=== PATIENT | female | born 1990 | race Caucasian/White ===

== ENCOUNTER 2017-01-30 16:01 | Emergency (ER) | payer MEDICAID ==
[~2017-01-30] VITALS: Ht 167.6 cm; Wt 87.0 kg
[~2017-01-30 16:01] MED LIST: ACET1TAB40 PO; ACET325T33 PO; CEPH-443 PO; CEPH500C PO; ONDA4TAB35 PO
[2017-01-30 16:03] VITALS: Ht 167.6 cm; Wt 87.0 kg
--- NOTE | 2017-01-30 16:41 | ERD ---
ER Documentation Chief Complaint Date/Time DATE: 01/30/17 TIME: 16:38 Chief Complaint vaginal bleeding, 17 wks , s/p fall in shower sunday HPI 6-year-old female who is approximately 17 weeks is complaining of vaginal bleeding 3 days. Patient said that she slipped and fell in the shower 3 days ago, and hit her lower abdomen on the edge of the tub. She is being experiencing pain in her pelvic region and slight vaginal bleeding. Pain is 7 out of 10. Patient also reports decreased movement since the fall. She has slight dysuria as well. Patient is SAB 1, LIBRADO 07/07/2017. Denies fever or chills. Denies flank pain. ROS All systems reviewed and are negative except as per history of present illness. Medications Home Meds Active Scripts Cephalexin* (Keflex*) 500 Mg Capsule, 500 MG PO QID for 7 Days, CAP Prov:OSCAR CONROY. RECORDS TECHNICIAN 01/30/17 Acetaminophen* (Tylophen*) 500 Mg Capsule, 1 CAP PO Q6H Y for PAIN AND OR ELEVATED TEMP, #20 CAP Prov:OSCAR CONROY. RECORDS TECHNICIAN 01/30/17 Acetaminophen* (Tylenol*) 325 Mg Tablet, 2 TAB PO Q8 Y for PAIN AND OR ELEVATED TEMP, #20 TAB Prov:KRISTA LEROY PA-C 07/26/16 Cephalexin* (Keflex*) 500 Mg Capsule, 500 MG PO QID for 7 Days, CAP Prov:KATHARINE HANLEY PA-C 07/20/16 Acetaminophen-Codeine* (Acetaminophen-Cod #3*) 300-30 Mg Tab, 1 TAB PO Q4H Y for PAIN, #40 TAB Prov:OSWALDO EVANS 09/17/15 Cephalexin* (Cephalexin*) 500 Mg Capsule, 500 MG PO Q6, #28 CAP Prov:OSWALDO EVANS 09/17/15 Ondansetron Hcl* (Zofran* ODT) 4 mg -ODT Tab.disper, 4 MG PO Q6 Y for NAUSEA AND /OR VOMITING, #10 TAB Prov:CARIDAD FERRER 09/14/15 Allergies Allergies: Coded Allergies: No Known Allergy (Unverified , 09/14/15) PMhx/Soc Medical and Surgical Hx: pt denies Medical Hx History of Surgery: Yes (Kidney stone removal, cholecystectomy) Anesthesia Reaction: No Hx Neurological Disorder: No Hx Respiratory Disorders: No Hx Cardiac Disorders: No Hx Psychiatric Problems: No Hx Miscellaneous Medical Probl: No Hx Alcohol Use: No Hx Substance Use: No Hx Tobacco Use: No Physical Exam Vitals Vital Signs Date Time Temp Pulse Resp B/P Pulse Ox O2 Delivery O2 Flow Rate FiO2 01/30/17 18:39 97.7 79 17 103/71 Room Air 01/30/17 16:03 98.8 81 20 120/79 99 Physical Exam General: Well-developed, well-nourished, conscious and coherent, in no distress Skin: Warm and dry without rash, good texture and turgor Head: Normocephalic without evidence of trauma Eyes: Sclera and conjunctivae normal; pupils equal, round, and reactive to light; extraocular movements are intact Neck: Supple without meningismus or adenopathy. Carotids are equal. Trachea midline. No bruits or JVD Chest: Normal AP diameter. Good expansion without retractions. Nontender. Lungs are clear to auscultate bilaterally with good tidal volume Heart: Regular rate and rhythm. No murmur, rub, or gallops heard Abdomen: Soft and nontender without masses, guarding, or rebound. Bowel sounds are active. No hepatosplenomegaly Back: Without spinal or CVA tenderness Pelvis: Tender to palpation. Extremities: Full range of motion. Good strength bilaterally. No clubbing, cyanosis, or edema. Peripheral pulses are intact. Sensation intact Neuro: Alert and oriented 4, GCS 15. Cranial nerves grossly intact. Motor and sensory exams nonfocal. Moves all extremities. Speech clear. Gait normal Result Diagram: 01/30/17 1650 Results 24 hrs Laboratory Tests Test 01/30/17 16:50 White Blood Count 12.410^3/ul Red Blood Count 4.4010^6/ul Hemoglobin 11.9g/dl Hematocrit 36.3% Mean Corpuscular Volume 82.5fl Mean Corpuscular Hemoglobin 27.0pg Mean Corpuscular Hemoglobin Concent 32.8g/dl Red Cell Distribution Width 15.5% Platelet Count 14150^3/UL Mean Platelet Volume 10.1fl Neutrophils % 65.0% Lymphocytes % 22.4% Monocytes % 5.5% Eosinophils % 6.4% Basophils % 0.2% Nucleated Red Blood Cells % 0.0/100WBC Neutrophils # 8.110^3/ul Lymphocytes # 2.810^3/ul Monocytes # 0.710^3/ul Eosinophils # 0.810^3/ul Basophils # 0.010^3/ul Nucleated Red Blood Cells # 0.010^3/ul Urine Color LT. YELLOW Urine Clarity CLEAR Urine pH 6.5 Urine Specific [place] <=1.005 Urine Ketones NEGATIVE Urine Nitrite NEGATIVE Urine Bilirubin NEGATIVE Urine Urobilinogen 0.2 E.U./dL Urine Leukocyte Esterase 2+ Urine Microscopic RBC 2-5/HPF Urine Microscopic WBC 2-5/HPF Urine Squamous Epithelial Cells MODERATE Urine Bacteria FEW Urine Hemoglobin 1+ Urine Glucose NEGATIVE% Urine Total Protein NEGATIVE Beta HCG, Quantitative 21219.0mIU/ml PROCEDURE: Obstetrical ultrasound CLINICAL INDICATION: Vaginal Bleed () TECHNIQUE: Multiple sonographic images of the pelvis were obtained. The images were reviewed on a PACS workstation. COMPARISON: Obstetrical ultrasound from 07/25/2016 FINDINGS: The cervix is closed with a length of 3.2 cm. There is a single viable intrauterine gestation. Cardiac activity is present with 143 beats per minute. There is a breech presentation. The placenta is anterior. There is no evidence for an abruption or placenta previa. There is a normal amount of amniotic fluid with a maximum vertical pocket of 4.9 cm. Measurements were made in order to determine age. The results are as follows (cm): BPD = 3.80 HC = 14.36 AC = 11.68 FL = 2.45 Estimated gestational age by ultrasound of approximately 17 weeks, 4 days. The estimated date of delivery by ultrasound is 07/06/2017. Estimated gestational age by LMP of approximately 17 weeks, 3 days. The estimated date of delivery by LMP is 07/07/2017. EFW = 195 grams (45th percentile) The right ovary is not visualized. The left ovary measures 2.0 x 1.4 x 1.6 cm. There is normal vascular flow in the left ovary. There are no abnormal adnexal masses. IMPRESSION: Single viable intrauterine gestation of approximately 17 weeks, 4 days . The estimated date of delivery is 07/06/2017 . Dating by ultrasound is within 1 day of dating by LMP. Breech presentation. Anterior placenta without evidence of an abruption. The left ovary is unremarkable in the right ovary is not visualized. There are no abnormal adnexal masses. RPTAT: EE Trey Hackett Physician Date Time Electronically viewed and signed by Trey Hackett Physician on 01/30/2017 17:15 RA/ CC: OSCAR CONROY. RECORDS TECHNICIAN Procedures/MDM ED course: CBC: WBC 12.4, hemoglobin 11.9, hematocrit 36.3, platelets 392. Beta hC.0 UA: 2+ leukocyte, negative nitrite, 1+ hemoglobin Blood type: O+. RhoGAM is not indicated for patient. OB ultrasound: Single viable intrauterine gestation of approximately 17 weeks, 4 days . The estimated date of delivery is 07/06/2017 . Dating by ultrasound is within 1 day of dating by LMP. Breech presentation. Anterior placenta without evidence of an abruption. The left ovary is unremarkable in the right ovary is not visualized. There are no abnormal adnexal masses. Medical decision-making: Well-appearing 26-year-old female who is approximately 17 weeks is complaining of pelvic pain and slight vaginal bleeding after a fall 3 days ago. Ultrasound showed normal intrauterine . UA is positive for UTI. Likely her spotting is due to UTI rather than vaginal bleeding. Her pelvic pain is likely secondary to contusion. Tylenol given to the patient in the ED. Patient appears well, stable for discharge and outpatient management. Medical decision making shared with patient and family. Education provided to patient and family. Patient and family expressed understanding of the plan. Medications on discharge: Tylenol, Keflex. Follow-up: Primary care provider in 2-3 days or return to ED if worse. Departure Diagnosis: Primary Impression: Vaginal bleeding in patient at less than 20 weeks ges... Additional Impression: UTI (urinary tract infection) Condition: Stable OSCAR CONROY NP Jan 30, 2017 16:41
[2017-01-30 17:12] LABS: ADD SCAN DIFF NO
[2017-01-30 17:14] LABS: BASOPHILS % 0.2 % (0.0-2.0); EOSINOPHILS # 0.8 10^3/ul (0.0-0.5); EOSINOPHILS % 6.4 % (0.0-7.0); HEMATOCRIT 36.3 % (37.0-47.0); HEMOGLOBIN 11.9 g/dl (12.0-16.0); LYMPHOCYTES # 2.8 10^3/ul (0.8-2.9); LYMPHOCYTES % 22.4 % (15.0-51.0); MEAN CORPUSCULAR HGB CONC 32.8 g/dl (32.0-37.0); MEAN CORPUSCULAR VOLUME 82.5 fl (82.0-101.0); MEAN PLATELET VOLUME 10.1 fl (7.4-10.4); MONOCYTE # 0.7 10^3/ul (0.3-0.9); MONOCYTES % 5.5 % (0.0-11.0); NEUTROPHIL # 8.1 10^3/ul (1.6-7.5); PLATELET COUNT 392 10^3/UL (140-415); RED CELL DISTRIBUTION WIDTH 15.5 % (11.5-14.5); WHITE BLOOD COUNT 12.4 10^3/ul (4.8-10.8)
--- NOTE | 2017-01-30 17:15 | RADRPT ---
PROCEDURE: Obstetrical ultrasound CLINICAL INDICATION: Vaginal Bleed () TECHNIQUE: Multiple sonographic images of the pelvis were obtained. The images were reviewed on a PACS workstation. COMPARISON: Obstetrical ultrasound from 07/25/2016 FINDINGS: The cervix is closed with a length of 3.2 cm. There is a single viable intrauterine gestation. Cardiac activity is present with 143 beats per minute. There is a breech presentation. The placenta is anterior. There is no evidence for an abruption or placenta previa. There is a normal amount of amniotic fluid with a maximum vertical pocket of 4.9 cm. Measurements were made in order to determine age. The results are as follows (cm): BPD =3.80 HC =14.36 AC =11.68 FL =2.45 Estimated gestational age by ultrasound of approximately 17 weeks, 4 days. The estimated date of delivery by ultrasound is 07/06/2017. Estimated gestational age by LMP of approximately 17 weeks, 3 days. The estimated date of delivery by LMP is 07/07/2017. EFW = 195 grams (45th percentile) The right ovary is not visualized. The left ovary measures 2.0 x 1.4 x 1.6 cm. There is normal vasc ular flow in the left ovary. There are no abnormal adnexal masses. IMPRESSION: Single viable intrauterine gestation of approximately 17 weeks, 4 days . The estimated date of delivery is 07/06/2017 . Dating by ultrasound is within 1 day of dating by LMP. Breech presentation. Anterior placenta without evidence of an abruption. The left ovary is unremarkable in the right ovary is not visualized. There are no abnormal adnexal masses. RPTAT: EE Physician Willi Date Time Electronically viewed and signed by Trey Hackett Physician on 01/30/2017 17:15 RA/
[2017-01-30 17:34] LABS: ADD UMIC YES; URINE BILIRUBIN (Dip) NEGATIVE (NEGATIVE); URINE BLOOD (Dip) 1+ (NEGATIVE); URINE COLOR LT. YELLOW (YELLOW); URINE GLUCOSE (Dip) NEGATIVE (NEGATIVE); URINE KETONES (Dip) NEGATIVE (NEGATIVE); URINE LEUKOCYTE ESTERASE (Dip) 2+ (NEGATIVE); URINE NITRITE (Dip) NEGATIVE (NEGATIVE); URINE TOTAL PROTEIN (Dip) NEGATIVE (NEGATIVE); URINE UROBILINOGEN (Dip) 0.2 E.U./dL (0.1-1.0)
[2017-01-30 17:48] LABS: BACTERIA,URINE FEW; SQUAMOUS EPITHELIAL CELL,UR MODERATE
[2017-01-30] MEDS ORDERED: ACET500C5 PO (18:27)
[2017-01-30] MEDS ORDERED: CEPH-443 PO (18:27)
[2017-01-30 18:39] VITALS: BP 103/71; PULSE 79; RESP 17; TEMP 97.7
== END 2017-01-30 18:39 | disposition home or self-care (01) ==
LOC: FTE 16:01
DX: O20.9 Hemorrhage in early pregnancy, unspecified (principal); O23.42 Unspecified infection of urinary tract in pregnancy, second trimester; R40.2412 Glasgow coma scale score 13-15, at arrival to emergency department; R10.2 Pelvic and perineal pain; Z3A.17 17 weeks gestation of pregnancy
CPT/HCPCS: 36415; 76805; 81001; 84702; 85025; 86900; 86901; Z7502

== ENCOUNTER 2017-03-04 18:28 | Outpatient (CLI) | payer MEDICAID ==
[~2017-03-04] VITALS: Ht 162.6 cm; Wt 88.6 kg
[~2017-03-04 18:28] MED LIST changes: +ACET500C5 PO
[2017-03-04] MEDS ORDERED: PRENAT PO (19:17)
[2017-03-04 19:18] VITALS: BP 112/64; PULSE 97; RESP 18
[2017-03-04 19:41] LABS: URINE BLOOD (Dip) POC 1+ (NEGATIVE)
[2017-03-04] MEDS ORDERED: LACTATED RINGER'S 1,000 ML IV STA (19:53)
--- NOTE | 2017-03-04 20:51 | RADRPT ---
PROCEDURE: US OB AND ULTRASOUND CERVIX. CLINICAL INDICATION: Size and dates , contractions TECHNIQUE: Multiple sonographic images of the pelvis and gravid uterus were obtained. The images were reviewed on a PACS workstation. Transvaginal images of the cervix were also obtained. COMPARISON: 01/30/2017 FINDINGS: The cervix has a length of 5.1 cm. There is a single viable intrauterine gestation. Cardiac activity is present with 148 beats per min [place]. There is a breech presentation. The placenta is anterior. There is no evidence for an abruption or placenta previa. There is a normal amount of amniotic fluid with a MVP= 4.1 cm. Measurements were made in order to determine age. The results are as follows: BPD =5.2 cm HC =18.7 cm AC =18.3 cm FL =3.9 cm Estimated gestational age of approximately 22 weeks and 1 day based on ultrasound measurements. Clinical age: 22 weeks and 2 days. The estimated date of delivery is 07/07/2017, based on ultrasound measurements. The EFW = 525 g, 64%, based on LMP age. RPTAT: AA IMPRESSION: Single viable intrauterine gestation of approximately 22 weeks and 1 day based on ultrasound measur ements. .Stan Betancourt MD, Date Time Electronically viewed and signed by .Stan Betancourt MD, on 03/04/2017 20:51 .S/
[2017-03-04] MEDS ORDERED: LACTATED RINGER'S 1,000 ML IV SCH (21:00)
[2017-03-04 21:20] LABS: ADD UMIC YES; UR ASCORBIC ACID NEGATIVE (NEGATIVE); UR BILIRUBIN (Dip) NEGATIVE (NEGATIVE); UR BLOOD (Dip) 1+ mg/dL (NEGATIVE); UR CLARITY CLEAR (CLEAR); UR COLOR STRAW (YELLOW); UR GLUCOSE (Dip) NEGATIVE (NEGATIVE); UR KETONES (Dip) NEGATIVE (NEGATIVE); UR LEUKOCYTE ESTERASE (Dip) NEGATIVE Leu/ul (NEGATIVE); UR NITRITE (Dip) NEGATIVE (NEGATIVE); UR RBC 1 /HPF (0-5); UR SPECIFIC GRAVITY (Dip) 1.005 (1.003-1.030); UR TOTAL PROTEIN (Dip) NEGATIVE (NEGATIVE); UR UROBILINOGEN (Dip) NEGATIVE (NEGATIVE)
--- NOTE | 2017-03-04 21:52 | QN ---
Documentation Comment 25 y/o at 22+ weeks with c/o dizziness and abdominal discomfort. Afebrile VSS Abdomen soft NT Strip Appropriate for GA U/A negative Cervical length normal After IV hydration and rest, patient feels better. D/c home. MEGHNA TALBERT MD Mar 04, 2017 21:52
--- NOTE | 2017-03-04 22:31 | TRIAGE ---
OB Triage Datetime Report Generated by CPN: 03/04/2017 22:31 Datetime: 03/04/2017 21:56 Stage of : OB Triage Datetime: 03/04/2017 21:48 Monitor Mode: External Resting Tone [place]: Relaxed Contraction Comments: NO UC'S NOTED, PT DENIES UC'S AT THIS TIME Datetime: 03/04/2017 21:47 Stage of : OB Triage Datetime: 03/04/2017 21:31 Stage of : OB Triage Datetime: 03/04/2017 21:30 Pain Assessment Pain Scale: 0 Pain Presence: None/Denies Pain Type: N/A Datetime: 03/04/2017 21:03 Stage of : OB Triage Datetime: 03/04/2017 20:14 Stage of : OB Triage Datetime: 03/04/2017 20:12 Stage of : OB Triage Datetime: 03/04/2017 20:08 Stage of : OB Triage Temperature Route: Oral Pain Assessment Pain Scale: 8 Pain Presence: Intermittent Pain Type: Contraction (Annotations: PER PT REPORT) Pain Location: Abdomen Pain Goal: 2 Pain Relief Measures: Comfort Measures Datetime: 03/04/2017 20:06 Stage of : OB Triage Datetime: 03/04/2017 20:00 Labor Evaluation Frequency: x2 Monitor Mode: External Duration (sec)2399: 40 Quality: Mild Resting Tone [place]: Relaxed Datetime: 03/04/2017 19:50 Stage of : OB Triage Datetime: 03/04/2017 19:44 Stage of : OB Triage Datetime: 03/04/2017 19:34 Monitor Mode: External Datetime: 03/04/2017 19:24 Labor Evaluation Frequency: NONE Monitor Mode: External Pattern: Normal: <= 5 Contractions in 10 Minutes Resting Tone [place]: Relaxed Datetime: 03/04/2017 19:19 Time of Arrival: 03/04/2017 18:24 EGA: 22.2 Arrived By: Wheelchair Arrived From: Emergency Dept Chief Complaint: DIZZINESS STARTING 78 MORNING, AND CONTRACTIONS/ABDOMINAL PAIN STARTING FROM 8 IN THE MORNING. Contractions: Occasional Rupture of Membranes: Denies Vaginal Bleeding: None Vaginal Discharge: Denies Recent Sexual Intercouse: Denies Abdominal Trauma: Not Applicable Patient Complaints: Contractions; Dizziness Initial Plan: U/S FOR FHTs, CONTINUOUS TOCO, IV bolus 1l, then 125ml/hr prn ucs, UA, CL Datetime: 03/04/2017 19:09 Stage of : OB Triage Datetime: 03/04/2017 18:48 Stage of : OB Triage Assessment Type: Triage Maternal Assessment Level of Consciousness: Fully Conscious Headache: Denies Blurred Vision: No Respiratory Effort: Unlabored; Regular Rhythm; Equal Expansion Breath Sounds, Left: Clear and Equal Breath Sounds, Right: Clear and Equal Nausea/Vomiting: Denies RUQ Epigastric Pain: Denies Lower Extremities Edema: None Degree: None Upper Extremities Edema: None Degree: None Facial Edema: None Temperature Route: Oral Fall Risk Assessment History of Falling: (0) No Secondary Diagnosis: (0) No Ambulatory Aid: (0) Bedrest/Nurse Assist IV Therapy: (0) No Gait: (0) Normal/Bedrest/Immobile Mental Status: (0) Oriented to Own Ability Fall Score: 0 Fall Risk Score Definition: No Risk: No action required Pain Assessment Pain Scale: 10 Pain Presence: Intermittent Pain Type: Cramping; Contraction Pain Location: Abdomen Datetime: 03/04/2017 18:46 Heart Rate FHR Baseline Rate: 150
== END 2017-03-04 21:56 | disposition home or self-care (01) ==
LOC: OBT 18:28 → L-D 18:29 → OBT 21:56
PROVIDERS: ATTEND Obstetrics & Gynecology
DX: O26.892 Other specified pregnancy related conditions, second trimester (principal); R42 Dizziness and giddiness; Z3A.23 23 weeks gestation of pregnancy
CPT/HCPCS: 36415; 76815; 76817; 81001; 96360; 96361; J7120; Z7500; 81003; G0463

== ENCOUNTER 2017-05-15 18:55 | Outpatient (CLI) | payer MEDICAID ==
[~2017-05-15] VITALS: Ht 160 cm; Wt 136.4 kg
[~2017-05-15 18:55] MED LIST changes: -ACET1TAB40 PO; -ACET325T33 PO; -ACET500C5 PO; -CEPH-443 PO; -CEPH500C PO; -ONDA4TAB35 PO; +PRENAT PO
[2017-05-15 18:59] VITALS: Ht 160 cm; Wt 136.4 kg
[2017-05-15 19:00] VITALS: BP 120/74; PULSE 86; RESP 19
[2017-05-15] MEDS ORDERED: LACTATED RINGER'S 1,000 ML IV ONE (20:00)
[2017-05-15] MEDS: TERBUTALINE 1 MG/ML INJ SC PRN ×2 (20:17→21:25)
--- NOTE | 2017-05-15 20:36 | PN ---
Triage Information Date/Time Reason for visit: labor Weeks of Gestation 32 /Para 2/1 Diabetes: none Hypertention: none Objective Vital Signs Date Time Temp Pulse Resp B/P Pulse Ox O2 Delivery O2 Flow Rate FiO2 05/15/17 19:00 86 19 120/74 99 Room Air Heart Rate: 140's Contractions: 6-10 Minutes Apart Exam cervix is closed and thick Results/Medications Medications Current Medications Terbutaline Sulfate 0.25 mg 0.25 mg PRN PRN SC contractions Last administered on 05/15/17 20:17; Admin Dose 0.25 MG; Start 05/15/17 at 20:00 Lactated Ringer's (Lr) 1,000 ml @ 1,000 mls/hr Q1H ONCE IV Last administered on 05/15/17 20:17; Admin Dose 1,000 MLS/HR; Start 05/15/17 at 20:00; Stop 05/15 at 20:59 Disposition: UA AND TERBUTALINE MARYA ROMERO MD May 15, 2017 20:36
[2017-05-15 21:46] LABS: ADD UMIC YES; UR ASCORBIC ACID NEGATIVE (NEGATIVE); UR BILIRUBIN (Dip) NEGATIVE (NEGATIVE); UR BLOOD (Dip) 1+ mg/dL (NEGATIVE); UR CLARITY CLEAR (CLEAR); UR COLOR STRAW (YELLOW); UR GLUCOSE (Dip) NEGATIVE (NEGATIVE); UR KETONES (Dip) NEGATIVE (NEGATIVE); UR LEUKOCYTE ESTERASE (Dip) NEGATIVE Leu/ul (NEGATIVE); UR NITRITE (Dip) NEGATIVE (NEGATIVE); UR RBC 0 /HPF (0-5); UR SPECIFIC GRAVITY (Dip) 1.003 (1.003-1.030); UR SQUAMOUS EPITHELIAL CELL FEW /HPF (FEW); UR TOTAL PROTEIN (Dip) NEGATIVE (NEGATIVE); UR UROBILINOGEN (Dip) NEGATIVE (NEGATIVE)
--- NOTE | 2017-05-15 23:12 | TRIAGE ---
OB Triage Datetime Report Generated by CPN: 05/15/2017 23:12 Datetime: 05/15/2017 22:38 Pain Assessment Pain Scale: 0 Pain Presence: None/Denies Pain Type: N/A Datetime: 05/15/2017 21:53 Pain Assessment Pain Scale: 0 Pain Presence: None/Denies Pain Type: N/A Datetime: 05/15/2017 21:25 Pain Assessment Pain Scale: 8 Pain Presence: Constant Pain Type: Sharp Pain Location: Abdomen; Back Datetime: 05/15/2017 20:30 Vaginal Exam Dilatation (cms): 0.0 Effacement (%): 0 Station: -3 Exam By: Dr. Hernandez Vaginal Bleeding: None Cervix, Consistency: Moderate Cervix, Position: Posterior Datetime: 05/15/2017 19:28 Maternal Assessment Level of Consciousness: Fully Conscious DTR's/Clonus: DTRs 1+ Headache: Denies Blurred Vision: No Respiratory Effort: Unlabored Breath Sounds, Left: Clear and Equal Breath Sounds, Right: Clear and Equal Nausea/Vomiting: Denies RUQ Epigastric Pain: Denies Facial Edema: None Labor Evaluation Frequency: X2 Monitor Mode: External Duration (sec)2399: 60-80 Quality: Mild Pattern: Normal: <= 5 Contractions in 10 Minutes Resting Tone [place]: Relaxed Heart Rate FHR Baseline Rate: 145 Monitor Mode: External US Variability: Moderate 6-25 bpm Accelerations: 15X15 Decelerations: None Category: Category I Pain Assessment Pain Scale: 8 Pain Presence: Intermittent Pain Type: Contraction Pain Location: Back Pain Goal: 3 Pain Relief Measures: Pain Medication Given Membrane Status: Intact Datetime: 05/15/2017 18:58 Assessment Type: Triage Maternal Assessment Level of Consciousness: Fully Conscious DTR's/Clonus: DTRs 2+; No Clonus Headache: Denies Blurred Vision: No Respiratory Effort: Unlabored; Regular Rhythm; Equal Expansion Breath Sounds, Left: Clear and Equal Breath Sounds, Right: Clear and Equal Nausea/Vomiting: Denies RUQ Epigastric Pain: Denies Lower Extremities Edema: None Degree: None Upper Extremities Edema: None Degree: None Facial Edema: None Fall Risk Assessment History of Falling: (0) No Secondary Diagnosis: (0) No Ambulatory Aid: (0) Bedrest/Nurse Assist IV Therapy: (0) No Gait: (0) Normal/Bedrest/Immobile Mental Status: (0) Oriented to Own Ability Fall Score: 0 Fall Risk Score Definition: No Risk: No action required Datetime: 05/15/2017 18:45 Time of Arrival: 05/15/2017 18:45 EGA: 32.4 Arrived By: Ambulatory Arrived From: Home Chief Complaint: PT CAME IN C/O UC'S Q 4 MIN SINCE YESTERDAY, DENIES ANY OTHER COMPLICATION AT S I TIME AND STATES + FM Movement: Present Contractions: Regular Time Contractions Began: 05/14/2017 06:00 Contractions: Q 4 Rupture of Membranes: Denies Vaginal Bleeding: None Vaginal Discharge: Denies Recent Sexual Intercouse: Denies Abdominal Trauma: Not Applicable Additional Patient Complaints: NONE Time Provider Notified: 05/15/2017 19:45 Provider Notified: Dr. Hernandez Initial Plan: MONITOR Datetime: 03/04/2017 19:19 EGA: 22.2 Datetime: 03/04/2017 18:48 Fall Score: 0 Fall Risk Score Definition: No Risk: No action required
== END 2017-05-15 23:00 | disposition home or self-care (01) ==
LOC: OBT 18:55 → L-D 18:57 → OBT 23:00
PROVIDERS: ATTEND Obstetrics & Gynecology
DX: O60.03 Preterm labor without delivery, third trimester (principal); Z3A.32 32 weeks gestation of pregnancy
CPT/HCPCS: 36415; 81001; 96360; 96361; 96372; G0463; J3105; J7120

== ENCOUNTER 2017-06-11 14:33 | Outpatient (CLI) | payer MEDICAID ==
[~2017-06-11] VITALS: Ht 160 cm; Wt 93.8 kg
[2017-06-11] MEDS ORDERED: LACTATED RINGER'S 1,000 ML IV SCH (14:37)
[2017-06-11 14:45] VITALS: BP 129/75; PULSE 104; RESP 24; Ht 160 cm; Wt 93.8 kg
--- NOTE | 2017-06-11 15:03 | RADRPT ---
PROCEDURE: US OB biophysical profile. CLINICAL INDICATION: decreased movements, contractions TECHNIQUE: Multiple sonographic images of the pelvis were obtained. The images were reviewed on a PACS workstation. COMPARISON: none FINDINGS: There is a single viable intrauterine gestation. Cardiac activity is present with 161 beats per min [place]. There is a vertex presentation. The placenta is anterior. There is no evidence of placental abruption. There is a normal amount of amniotic fluid with an SARITA = 10.2 cm. Biophysical profile: movement 2/2 tone 2/2. breathing 2/2 SARITA 2/2 Total 04/03 RPTAT: AA . IMPRESSION: Normal biophysical profile. . .Stan Betancourt MD, MD Date Time Electronically viewed and signed by .Stan Betancourt MD, MD on 06/11/2017 15:03 .S/
--- NOTE | 2017-06-11 15:05 | RADRPT ---
AMENDMENT: 06/11/2017 4:12:30 PM Stan Betancourt M.D Estimated gestational age of approximately 36 weeks and 3 days based on ultrasound measurements. Clinical age: 36 weeks and 3 days. The estimated date of delivery is 07/06/17, based on ultrasound measurements. The EFW = 3119 g, 72%, based on LMP age. PROCEDURE: US OB. CLINICAL INDICATION: Size and dates TECHNIQUE: Multiple sonographic images of the pelvis and gravid uterus were obtained. The images were reviewed on a PACS workstation. COMPARISON: No prior studies are available for comparison. FINDINGS: There is a single viable intrauterine gestation. Cardiac activity is present with 173 beats per min [place]. There is a vertex presentation. The placenta is anterior. There is no evidence of placental abruption. There is a normal amount of amniotic fluid with an SARITA = 10.2 cm. Measurements were made in order to determine age. The results are as follows: BPD =8.8 cm HC =32 cm AC =34.3 cm FL =7.0 cm Estimated gestational age of approximately 36 weeks and 3 days based on ultrasound measurements. Clinical age: 40 weeks and 6 days. The estimated date of delivery is 07/06/17, based on ultrasound measurements. The EFW = 3119 g, 8.9%, based on LMP age. RPTAT: AA IMPRESSION: Single viable intrauterine gestation of approximately 36 weeks and 3 days based on ultrasound measu rements. Smaller than clinical age by 4.5 weeks. .Stan Betancourt MD, Date Time Electronically viewed and signed by .Stan Betancourt MD, on 06/11/2017 16:12 .S/
[2017-06-11 15:45] LABS: ADD UMIC YES; UR ASCORBIC ACID NEGATIVE (NEGATIVE); UR BILIRUBIN (Dip) NEGATIVE (NEGATIVE); UR BLOOD (Dip) 1+ mg/dL (NEGATIVE); UR CLARITY CLEAR (CLEAR); UR COLOR STRAW (YELLOW); UR GLUCOSE (Dip) NEGATIVE (NEGATIVE); UR KETONES (Dip) NEGATIVE (NEGATIVE); UR LEUKOCYTE ESTERASE (Dip) NEGATIVE Leu/ul (NEGATIVE); UR NITRITE (Dip) NEGATIVE (NEGATIVE); UR RBC 0 /HPF (0-5); UR SPECIFIC GRAVITY (Dip) 1.004 (1.003-1.030); UR TOTAL PROTEIN (Dip) NEGATIVE (NEGATIVE); UR UROBILINOGEN (Dip) NEGATIVE (NEGATIVE)
--- NOTE | 2017-06-11 16:27 | TRIAGE ---
OB Triage Datetime Report Generated by CPN: 06/11/2017 16:27 Datetime: 06/11/2017 15:11 Comments: ROM PLUS COLLECTED AT THIS TIMW Vaginal Exam Dilatation (cms): 0.0 Effacement (%): 0 Station: -3 Exam By: OGBODU _ Datetime: 06/11/2017 14:46 Stage of : OB Triage Assessment Type: Triage Maternal Assessment Level of Consciousness: Fully Conscious DTR's/Clonus: DTRs 2+; No Clonus Headache: Denies Blurred Vision: No Respiratory Effort: Unlabored; Regular Rhythm; Equal Expansion Breath Sounds, Left: Clear and Equal Breath Sounds, Right: Clear and Equal Nausea/Vomiting: Denies RUQ Epigastric Pain: Denies Lower Extremities Edema: Bilateral Lower Extremities Degree: 1+ Upper Extremities Edema: None Degree: None Facial Edema: None Temperature Route: Axillary Fall Risk Assessment History of Falling: (0) No Secondary Diagnosis: (0) No Ambulatory Aid: (0) Bedrest/Nurse Assist IV Therapy: (0) No Gait: (0) Normal/Bedrest/Immobile Mental Status: (0) Oriented to Own Ability Fall Score: 0 Fall Risk Score Definition: No Risk: No action required Datetime: 06/11/2017 14:39 Time of Arrival: 06/11/2017 14:31 EGA: 36.3 Arrived By: Ambulatory Arrived From: Home Chief Complaint: R/O SROM SINCE 0800 Movement: Present Contractions: Irregular Time Contractions Began: 06/11/2017 08:00 Rupture of Membranes: Denies Vaginal Bleeding: None Vaginal Discharge: Denies Recent Sexual Intercouse: Denies Time Provider Notified: 06/11/2017 15:30 Provider Notified: DR. ROMERO Initial Plan: SVE, NST CALL MD Datetime: 05/15/2017 22:30 Labor Evaluation Frequency: NONE Monitor Mode: External Resting Tone [place]: Relaxed Heart Rate FHR Baseline Rate: 140 Monitor Mode: External US Variability: Moderate 6-25 bpm Accelerations: 15X15 Decelerations: None Category: Category I Datetime: 05/15/2017 21:30 Labor Evaluation Frequency: x1 Monitor Mode: External Duration (sec)2399: 80 Quality: Mild Pattern: Normal: <= 5 Contractions in 10 Minutes Resting Tone [place]: Relaxed Heart Rate FHR Baseline Rate: 140 Monitor Mode: External US Variability: Moderate 6-25 bpm Accelerations: 15X15 Decelerations: None Category: Category I Datetime: 05/15/2017 20:30 Labor Evaluation Frequency: x4 Monitor Mode: External Duration (sec)2399: 50-80 Quality: Mild Pattern: Normal: <= 5 Contractions in 10 Minutes Resting Tone [place]: Relaxed Heart Rate FHR Baseline Rate: 140 Monitor Mode: External US Variability: Moderate 6-25 bpm Accelerations: 15X15 Decelerations: None Category: Category I Datetime: 05/15/2017 18:58 Fall Score: 0 Fall Risk Score Definition: No Risk: No action required Datetime: 05/15/2017 18:45 EGA: 32.4 Datetime: 03/04/2017 19:19 EGA: 22.2 Datetime: 03/04/2017 18:48 Fall Score: 0 Fall Risk Score Definition: No Risk: No action required
[2017-06-11 16:39] LABS: BASOPHILS % 0.4 % (0.0-2.0); EOSINOPHILS # 0.8 10^3/ul (0.0-0.5); EOSINOPHILS % 7.7 % (0.0-7.0); HEMATOCRIT 35.2 % (37.0-47.0); HEMOGLOBIN 11.2 g/dl (12.0-16.0); LYMPHOCYTES # 1.9 10^3/ul (0.8-2.9); LYMPHOCYTES % 18.6 % (15.0-51.0); MEAN CORPUSCULAR HEMOGLOBIN 27.4 pg (29.0-33.0); MEAN CORPUSCULAR HGB CONC 31.8 g/dl (32.0-37.0); MEAN CORPUSCULAR VOLUME 86.1 fl (82.0-101.0); MEAN PLATELET VOLUME 10.2 fl (7.4-10.4); MONOCYTE # 0.6 10^3/ul (0.3-0.9); MONOCYTES % 5.7 % (0.0-11.0); NEUTROPHIL # 6.9 10^3/ul (1.6-7.5); NEUTROPHILS % 67.2 % (39.0-77.0); PLATELET COUNT 348 10^3/UL (140-415); RED BLOOD COUNT 4.09 10^6/ul (4.20-5.40); RED CELL DISTRIBUTION WIDTH 14.4 % (11.5-14.5); WHITE BLOOD COUNT 10.3 10^3/ul (4.8-10.8)
--- NOTE | 2017-06-11 17:47 | QN ---
Documentation Comment 36 weeks co of LOF vss exam wnl nst reactive a/p iup 36 week rom neg nida wnl dc home false labor NAZ RODRIGUEZ MD Jun 11, 2017 17:47
== END 2017-06-11 16:30 | disposition home or self-care (01) ==
LOC: OBT 14:33 → L-D 14:33 → OBT 16:30
PROVIDERS: ATTEND Obstetrics & Gynecology
DX: O41.93X0 Disorder of amniotic fluid and membranes, unspecified, third trimester, not applicable or unspecified (principal); O47.03 False labor before 37 completed weeks of gestation, third trimester; Z3A.36 36 weeks gestation of pregnancy
CPT/HCPCS: 76815; 76818; 81001; 84112; 85025; J7120; Z7500; G0463

== ENCOUNTER 2017-06-19 21:24 | Outpatient (CLI) | payer MEDICAID ==
[~2017-06-19] VITALS: Ht 160 cm; Wt 94.3 kg
[2017-06-19 21:54] VITALS: Ht 160 cm; Wt 94.3 kg
--- NOTE | 2017-06-20 00:04 | RADRPT ---
PROCEDURE: ULTRASOUND OBSTETRICAL CLINICAL INDICATION: 26-year-old female with ruptured membranes. The studies performed fo r amniotic fluid index evaluation. TECHNIQUE: Multiple sonographic images of the pelvis were obtained. The images were reviewed on a PACS workstation. COMPARISON: Ultrasound OB June 11, 2017. FINDINGS: The cervix is not well visualized. There is a single viable intrauterine gestation. Cardiac activit y is present with 141 beats per minute. There is a vertex presentation. The placenta is anterior. There is no evidence for an abruption or placenta previa. There is a normal amount of amniotic fluid with an SARITA = 10.4 cm. IMPRESSION: 1. Single viable intrauterine gestation with vertex presentation. 2. The amniotic fluid index equals 10.4 cm. .Nj Welch MD, Date Time Electronically viewed and signed by .Nj Welch MD, on 06/20/2017 00:04 .M/
--- NOTE | 2017-06-20 00:19 | TRIAGE ---
OB Triage Datetime Report Generated by CPN: 06/20/2017 00:19 Datetime: 06/20/2017 00:15 Stage of : OB Triage Datetime: 06/20/2017 00:13 Stage of : OB Triage Datetime: 06/19/2017 23:58 Stage of : OB Triage Datetime: 06/19/2017 23:30 Labor Evaluation Frequency: OCC Monitor Mode: External Pattern: Normal: <= 5 Contractions in 10 Minutes Heart Rate FHR Baseline Rate: 135 FHR Baseline Changes: No Baseline Change Variability: Moderate 6-25 bpm Accelerations: 15X15 Datetime: 06/19/2017 22:55 Labor Evaluation Frequency: OCC Monitor Mode: External Pattern: Normal: <= 5 Contractions in 10 Minutes Heart Rate FHR Baseline Rate: 135 FHR Baseline Changes: No Baseline Change Variability: Moderate 6-25 bpm Accelerations: 15X15 Decelerations: None Datetime: 06/19/2017 22:00 Labor Evaluation Frequency: OCC Monitor Mode: External Pattern: Normal: <= 5 Contractions in 10 Minutes Heart Rate FHR Baseline Rate: 125 Monitor Mode: External US FHR Baseline Changes: No Baseline Change Variability: Moderate 6-25 bpm Datetime: 06/19/2017 21:34 Stage of : OB Triage Vaginal Exam Dilatation (cms): 1.0 Effacement (%): 50 Station: -4 Exam By: GSTRATTON RN Datetime: 06/19/2017 21:20 Stage of : OB Triage Assessment Type: Triage Maternal Assessment Level of Consciousness: Fully Conscious Headache: Denies Blurred Vision: No Respiratory Effort: Unlabored; Regular Rhythm; Equal Expansion Nausea/Vomiting: Denies RUQ Epigastric Pain: Denies Facial Edema: None Fall Risk Assessment History of Falling: (0) No Secondary Diagnosis: (0) No Ambulatory Aid: (0) Bedrest/Nurse Assist IV Therapy: (0) No Gait: (0) Normal/Bedrest/Immobile Mental Status: (0) Oriented to Own Ability Fall Score: 0 Fall Risk Score Definition: No Risk: No action required Datetime: 06/19/2017 21:19 Time of Arrival: 06/19/2017 21:19 EGA: 37.4 Arrived By: Wheelchair Arrived From: Home Chief Complaint: SROM AT 2030 Movement: Present Contractions: Irregular Rupture of Membranes: Unsure Vaginal Discharge: Denies Recent Sexual Intercouse: Denies Abdominal Trauma: Not Applicable Patient Complaints: Other Time Provider Notified: 06/19/2017 22:40 Provider Notified: DELSHRICHARDSON Initial Plan: EFM, STERILE SPEC, ROM+, SVE Datetime: 06/11/2017 15:00 Assessment Type: Triage Maternal Assessment Level of Consciousness: Fully Conscious DTR's/Clonus: DTRs 2+; No Clonus Headache: Denies Blurred Vision: No Respiratory Effort: Unlabored; Regular Rhythm; Equal Expansion Breath Sounds, Left: Clear and Equal Breath Sounds, Right: Clear and Equal Nausea/Vomiting: Denies RUQ Epigastric Pain: Denies Lower Extremities Edema: Bilateral Lower Extremities Degree: 1+ Upper Extremities Edema: None Degree: None Facial Edema: None Fall Risk Assessment History of Falling: (0) No Secondary Diagnosis: (0) No Ambulatory Aid: (0) Bedrest/Nurse Assist IV Therapy: (0) No Gait: (0) Normal/Bedrest/Immobile Mental Status: (0) Oriented to Own Ability Fall Score: 0 Fall Risk Score Definition: No Risk: No action required Datetime: 06/11/2017 14:46 Fall Score: 0 Fall Risk Score Definition: No Risk: No action required Datetime: 06/11/2017 14:39 EGA: 36.3 Datetime: 05/15/2017 18:58 Fall Score: 0 Fall Risk Score Definition: No Risk: No action required Datetime: 05/15/2017 18:45 EGA: 32.4 Datetime: 03/04/2017 19:19 EGA: 22.2 Datetime: 03/04/2017 18:48 Fall Score: 0 Fall Risk Score Definition: No Risk: No action required
--- NOTE | 2017-06-20 01:09 | PN ---
Triage Information Date/Time Reason for visit: SROM Weeks of Gestation 37 weeks /Para Diabetes: none Hypertention: none Objective Heart Rate: 140's Heart Rate Comments Category I Contractions: 6-10 Minutes Apart Exam Cervix 1 cm Sterile speculum exam no pooling of amniotic fluid Results/Medications Results 24 hrs Laboratory Tests Test 06/19/17 21:34 Membranes Rupture NEGATIVE Imaging Results SARITA 10.4 Disposition: Discharge Assessment/Plan No sign of SROM D/C home. MEGHNA TALBERT MD Jun 20, 2017 01:09
== END 2017-06-20 00:22 | disposition home or self-care (01) ==
LOC: OBT 21:24 → L-D 21:27 → OBT 06-20 00:22
PROVIDERS: ATTEND Obstetrics & Gynecology
DX: O42.92 Full-term premature rupture of membranes, unspecified as to length of time between rupture and onset of labor (principal); Z3A.37 37 weeks gestation of pregnancy
CPT/HCPCS: 76815; 84112; Z7500; G0463

== ENCOUNTER 2017-06-24 00:20 | Outpatient (CLI) | payer SELFPAY ==
[~2017-06-24] VITALS: Ht 167.6 cm; Wt 95.8 kg
[2017-06-24 00:47] VITALS: Ht 167.6 cm; Wt 95.8 kg
[2017-06-24 00:48] VITALS: BP 122/65; PULSE 88; RESP 18
--- NOTE | 2017-06-24 03:22 | RADRPT ---
PROCEDURE: Obstetrical ultrasound, limited. CLINICAL INDICATION: Pelvic pain. TECHNIQUE: Multiple sonographic images of the pelvis were obtained using transabdominal technique . Images were obtained with pierce scale and color Doppler. The images were reviewed on a PACS works tation. COMPARISON: 06/19/2017. FINDINGS: There is a single living intrauterine gestation with the fetus in a vertex presentation. hear t tones of 141 beats per minute are identified. The placenta is anterior in location, grade 2. The re is normal amniotic fluid volume with an SARITA of 9.9 cm. IMPRESSION: Single viable intrauterine gestation. SARITA of 9.9 cm. .Vincent Altamirano MD, MD Date Time Electronically viewed and signed by .Vincent Altamirano MD, MD on 06/24/2017 03:22 .T/
--- NOTE | 2017-06-24 03:38 | PN ---
Triage Information Date/Time Reason for visit: DFM (x2d) Weeks of Gestation 38+2 /Para 3/1 Diabetes: none Hypertention: none Additional information Reports feeling some contractions, denies LOF or VB Objective Vital Signs Date Time Temp Pulse Resp B/P Pulse Ox O2 Delivery O2 Flow Rate FiO2 06/24/17 00:48 98.5 88 18 122/65 Room Air Heart Rate: 130's Contractions: 6-10 Minutes Apart Exam 0/60/-3/mod/post Results/Medications Imaging Results PROCEDURE: Obstetrical ultrasound, limited. CLINICAL INDICATION: Pelvic pain. TECHNIQUE: Multiple sonographic images of the pelvis were obtained using transabdominal technique. Images were obtained with pierce scale and color Doppler. The images were reviewed on a PACS workstation. COMPARISON: 06/19/2017. FINDINGS: There is a single living intrauterine gestation with the fetus in a vertex presentation. heart tones of 141 beats per minute are identified. The placenta is anterior in location, grade 2. There is normal amniotic fluid volume with an SARITA of 9.9 cm. IMPRESSION: Single viable intrauterine gestation. SARITA of 9.9 cm. Disposition: Discharge Assessment/Plan SARITA ordered per Dr. Hernandez and Modified BPP wnl (reactive NST, nl SARITA) Prodromal labor Pt appropriate for d/c home at this time with f/up as scheduled with Dr. Hernandez Strict labor, ROM and FKC precautions reviewed Questions answered to patient's satisfaction BORIS YIP MD Jun 24, 2017 03:38
== END 2017-06-24 03:58 | disposition home or self-care (01) ==
LOC: OBT 00:20 → L-D 00:21 → OBT 03:58
PROVIDERS: ATTEND Obstetrics & Gynecology
DX: O26.893 Other specified pregnancy related conditions, third trimester (principal); Z3A.38 38 weeks gestation of pregnancy; R10.2 Pelvic and perineal pain
CPT/HCPCS: 76815; G0463

== ENCOUNTER 2017-06-27 19:20 | Outpatient (CLI) | payer MEDICAID ==
[~2017-06-27] VITALS: Ht 160 cm; Wt 96.8 kg
[2017-06-27 19:32] VITALS: BP 141/88; PULSE 104; RESP 20; Ht 160 cm; Wt 96.8 kg
--- NOTE | 2017-06-27 21:06 | RADRPT ---
PROCEDURE: US OB biophysical profile. CLINICAL INDICATION: decreased movements, pain TECHNIQUE: Multiple sonographic images of the pelvis were obtained. The images were reviewed on a PACS workstation. COMPARISON: 06/24/17 FINDINGS: There is a single viable intrauterine gestation. Cardiac activity is present with 137 beats per min sun'aq. There is a vertex presentation. The placenta is anterior. There is no evidence of placental abruption. There is a normal amount of amniotic fluid with an SARITA = 13.7 cm. Biophysical profile: movement 2/2 tone 2/2. breathing 2/2 SARITA 2/2 Total 04/03 RPTAT: AA . IMPRESSION: Normal biophysical profile. . .Stan Betancourt MD, MD Date Time Electronically viewed and signed by .Stan Betancourt MD, MD on 06/27/2017 21:06 .S/
[2017-06-27 21:13] LABS: BASOPHIL # 0.1 10^3/ul (0.0-0.1); BASOPHILS % 0.5 % (0.0-2.0); EOSINOPHILS # 0.7 10^3/ul (0.0-0.5); EOSINOPHILS % 6.5 % (0.0-7.0); HEMATOCRIT 37.4 % (37.0-47.0); LYMPHOCYTES # 2.4 10^3/ul (0.8-2.9); LYMPHOCYTES % 22.1 % (15.0-51.0); MEAN CORPUSCULAR HEMOGLOBIN 28.2 pg (29.0-33.0); MEAN CORPUSCULAR HGB CONC 32.1 g/dl (32.0-37.0); MEAN PLATELET VOLUME 10.2 fl (7.4-10.4); MONOCYTE # 0.6 10^3/ul (0.3-0.9); MONOCYTES % 5.9 % (0.0-11.0); NEUTROPHIL # 6.9 10^3/ul (1.6-7.5); NEUTROPHILS % 64.6 % (39.0-77.0); PLATELET COUNT 331 10^3/UL (140-415); RED BLOOD COUNT 4.25 10^6/ul (4.20-5.40); RED CELL DISTRIBUTION WIDTH 14.4 % (11.5-14.5); WHITE BLOOD COUNT 10.7 10^3/ul (4.8-10.8)
[2017-06-27 21:23] LABS: ADD UMIC NO; UR ASCORBIC ACID NEGATIVE (NEGATIVE); UR BILIRUBIN (Dip) NEGATIVE (NEGATIVE); UR BLOOD (Dip) NEGATIVE (NEGATIVE); UR CLARITY CLEAR (CLEAR); UR COLOR COLORLESS (YELLOW); UR GLUCOSE (Dip) NEGATIVE (NEGATIVE); UR KETONES (Dip) NEGATIVE (NEGATIVE); UR LEUKOCYTE ESTERASE (Dip) NEGATIVE Leu/ul (NEGATIVE); UR NITRITE (Dip) NEGATIVE (NEGATIVE); UR SPECIFIC GRAVITY (Dip) 1.002 (1.003-1.030); UR TOTAL PROTEIN (Dip) NEGATIVE (NEGATIVE); UR UROBILINOGEN (Dip) NEGATIVE (NEGATIVE)
[2017-06-27 21:26] LABS: INR 0.85; PROTIME 11.6 Sec (12.2-14.2); PT RATIO 0.9
[2017-06-27 21:27] LABS: PARTIAL THROMBOPLASTIN TIME 24.7 Sec (25.0-35.0)
[2017-06-27 21:28] LABS: ALBUMIN 3.7 g/dl (3.3-4.9); ALBUMIN/GLOBULIN RATIO 1.05; BILIRUBIN,INDIRECT 0.1 mg/dl (0-1.1); BILIRUBIN,TOTAL 0.1 mg/dl (0.2-1.3); CALCIUM 9.4 mg/dl (8.4-10.2); CREATININE 0.51 mg/dl (0.44-1.00); POTASSIUM 4.6 mmol/L (3.5-5.1); TOTAL PROTEIN 7.2 g/dl (6.1-8.1); URIC ACID 5.3 mg/dl (3.1-7.9)
--- NOTE | 2017-06-28 00:41 | TRIAGE ---
OB Triage Datetime Report Generated by CPN: 06/28/2017 00:41 Datetime: 06/27/2017 23:40 Stage of : OB Triage Labor Evaluation Frequency: 3-8 Monitor Mode: External Duration (sec)2399: 60-120 Quality: Moderate Pattern: Normal: <= 5 Contractions in 10 Minutes Resting Tone [place]: Relaxed Heart Rate FHR Baseline Rate: 135 Monitor Mode: External US Variability: Moderate 6-25 bpm Accelerations: 15X15 Decelerations: None Category: Category I Pain Assessment Pain Scale: 10 Pain Presence: Intermittent Pain Type: Sharp Pain Location: Abdomen; Back Pain Goal: 5 Pain Relief Measures: Comfort Measures Datetime: 06/27/2017 23:00 Stage of : OB Triage Labor Evaluation Frequency: 3-10 Monitor Mode: External Duration (sec)2399: 70-180 Quality: Moderate Pattern: Normal: <= 5 Contractions in 10 Minutes Resting Tone [place]: Relaxed Heart Rate FHR Baseline Rate: 140 Monitor Mode: External US Variability: Moderate 6-25 bpm Accelerations: 15X15 Decelerations: None Category: Category I Pain Assessment Pain Scale: 10 Pain Presence: Intermittent Pain Type: Sharp Pain Location: Abdomen; Back Pain Goal: 5 Pain Relief Measures: Comfort Measures Datetime: 06/27/2017 22:57 Vaginal Exam Dilatation (cms): 1.0 Effacement (%): 0 Station: -3 Exam By: JASMIN Datetime: 06/27/2017 22:00 Stage of : OB Triage Labor Evaluation Frequency: 3-8 Monitor Mode: External Duration (sec)2399: 70-180 Quality: Moderate Pattern: Normal: <= 5 Contractions in 10 Minutes Resting Tone [place]: Relaxed Heart Rate FHR Baseline Rate: 135 Monitor Mode: External US Variability: Moderate 6-25 bpm Accelerations: 15X15 Decelerations: None Category: Category I Pain Assessment Pain Scale: 10 Pain Presence: Intermittent Pain Type: Sharp Pain Location: Abdomen; Back Pain Goal: 5 Pain Relief Measures: Comfort Measures Datetime: 06/27/2017 21:00 Stage of : OB Triage Labor Evaluation Frequency: 1-8 Monitor Mode: External Duration (sec)2399: 70-150 Quality: Moderate Pattern: Normal: <= 5 Contractions in 10 Minutes Resting Tone [place]: Relaxed Heart Rate FHR Baseline Rate: 140 Monitor Mode: External US Variability: Moderate 6-25 bpm Accelerations: 15X15 Decelerations: None Category: Category I Pain Assessment Pain Scale: 10 Pain Presence: Intermittent Pain Type: Sharp Pain Location: Abdomen; Back Pain Goal: 5 Pain Relief Measures: Comfort Measures Datetime: 06/27/2017 20:00 Stage of : OB Triage Labor Evaluation Frequency: 3-10 Monitor Mode: External Duration (sec)2399: 70-150 Quality: Moderate Pattern: Normal: <= 5 Contractions in 10 Minutes Resting Tone [place]: Relaxed Heart Rate FHR Baseline Rate: 140 Monitor Mode: External US Variability: Moderate 6-25 bpm Accelerations: 15X15 Decelerations: None Category: Category I Pain Assessment Pain Scale: 10 Pain Presence: Intermittent Pain Type: Sharp Pain Location: Abdomen; Back Pain Goal: 5 Pain Relief Measures: Comfort Measures Vaginal Exam Dilatation (cms): 1.0 Effacement (%): 0 Station: -3 Exam By: JASMIN Vaginal Bleeding: None Cervix, Consistency: Moderate Cervix, Position: Posterior Datetime: 06/27/2017 19:51 Time of Arrival: 06/27/2017 19:20 EGA: 38.5 Arrived By: Wheelchair Arrived From: Home Chief Complaint: CXS SINCE 1729 Movement: Present Contractions: Regular Time Contractions Began: 06/27/2017 17:30 Contractions: Q 4 MIN Rupture of Membranes: Denies Vaginal Bleeding: None Vaginal Discharge: Denies Patient Complaints: None Additional Patient Complaints: HX OF ASTHMA(LAST INHALER USE 1 YR AGO) Time Provider Notified: 06/27/2017 20:00 Provider Notified: NICK Initial Plan: EFM, VE Datetime: 06/27/2017 19:40 Stage of : OB Triage Temperature Route: Oral Monitor Mode: External (Annotations: APPLIED) Heart Rate FHR Baseline Rate: 140 Monitor Mode: External US Variability: Moderate 6-25 bpm Accelerations: 15X15 Decelerations: None Category: Category I Pain Assessment Pain Scale: 10 Pain Presence: Intermittent Pain Type: Sharp Pain Location: Abdomen; Back Pain Goal: 5 Pain Relief Measures: Comfort Measures Datetime: 06/27/2017 19:35 Assessment Type: Triage Maternal Assessment Level of Consciousness: Fully Conscious DTR's/Clonus: DTRs 2+; No Clonus Headache: Denies Blurred Vision: No Respiratory Effort: Unlabored; Regular Rhythm; Equal Expansion Breath Sounds, Left: Clear and Equal Breath Sounds, Right: Clear and Equal Nausea/Vomiting: Denies RUQ Epigastric Pain: Denies Lower Extremities Edema: None Upper Extremities Edema: None Facial Edema: None Fall Risk Assessment History of Falling: (0) No Secondary Diagnosis: (0) No Ambulatory Aid: (0) Bedrest/Nurse Assist IV Therapy: (0) No Gait: (0) Normal/Bedrest/Immobile Mental Status: (0) Oriented to Own Ability Fall Score: 0 Fall Risk Score Definition: No Risk: No action required Datetime: 06/24/2017 03:30 Stage of : OB Triage Datetime: 06/24/2017 02:10 Stage of : OB Triage Datetime: 06/24/2017 01:37 Stage of : OB Triage Datetime: 06/24/2017 01:30 Stage of : OB Triage Labor Evaluation Frequency: X6 Monitor Mode: External Duration (sec)2399: 60-100 Quality: Moderate Pattern: Normal: <= 5 Contractions in 10 Minutes Resting Tone [place]: Relaxed Heart Rate FHR Baseline Rate: 130 Monitor Mode: External US FHR Baseline Changes: No Baseline Change Variability: Moderate 6-25 bpm Accelerations: 15X15 Decelerations: None Category: Category I Datetime: 06/24/2017 01:05 Time of Arrival: 06/24/2017 00:12 EGA: 38.1 Arrived By: Wheelchair Arrived From: Home Chief Complaint: Decrease movement Movement: Decreased Contractions: Occasional Rupture of Membranes: Denies Vaginal Bleeding: None Vaginal Discharge: Denies Recent Sexual Intercouse: Denies Abdominal Trauma: Not Applicable Patient Complaints: Other Initial Plan: NST Datetime: 06/24/2017 00:58 Vaginal Exam Dilatation (cms): 0.0 Effacement (%): 60 Station: -3 Exam By: Patricio Flynn RN Vaginal Bleeding: None Cervix, Consistency: Moderate Cervix, Position: Posterior Datetime: 06/24/2017 00:40 Labor Evaluation Frequency: X2 Monitor Mode: External Duration (sec)2399: 50-60 Pattern: Normal: <= 5 Contractions in 10 Minutes Resting Tone [place]: Relaxed Heart Rate FHR Baseline Rate: 130 Monitor Mode: External US Variability: Moderate 6-25 bpm Accelerations: 15X15 Decelerations: None Category: Category I Datetime: 06/24/2017 00:28 Monitor Mode: External Contraction Comments: APPLIED Monitor Mode: External US Comments: APPLIED Datetime: 06/19/2017 21:20 Fall Score: 0 Fall Risk Score Definition: No Risk: No action required Datetime: 06/19/2017 21:19 EGA: 37.4 Datetime: 06/11/2017 15:00 Fall Score: 0 Fall Risk Score Definition: No Risk: No action required Datetime: 06/11/2017 14:46 Fall Score: 0 Fall Risk Score Definition: No Risk: No action required Datetime: 06/11/2017 14:39 EGA: 36.3 Datetime: 05/15/2017 18:58 Fall Score: 0 Fall Risk Score Definition: No Risk: No action required Datetime: 05/15/2017 18:45 EGA: 32.4 Datetime: 03/04/2017 19:19 EGA: 22.2 Datetime: 03/04/2017 18:48 Fall Score: 0 Fall Risk Score Definition: No Risk: No action required
--- NOTE | 2017-06-28 06:17 | PN ---
Triage Information Date/Time 06/27/2017 Reason for visit: Uterine contractions Weeks of Gestation 38 weeks and 5 days /Para Diabetes: none Hypertention: none Additional information 26-year-old with IUP at 38 weeks and 5 days presented with a complaint of contraction for rule out labor. She denies any leaking of fluid, vaginal bleeding or decreased movement. Denies any other complaints. Objective Vital Signs Date Time Temp Pulse Resp B/P Pulse Ox O2 Delivery O2 Flow Rate FiO2 06/27/17 19:32 98.3 104 20 141/88 Room Air Heart Rate: 130's Contractions: >10 Minutes Apart Exam General appearance: Alert and oriented 4. Patient does not appear to be in any acute distress. Abdomen: Soft, gravid, fundal height consistent with gestational age. Zayda vaginal examination: /-3, contractions q. 4-10 minutes. Noted to have one episode of elevated blood pressure 144/88. Repeat blood pressures are within normal range Denies any symptoms. Extremities: No calf tenderness, no click no edema Results/Medications Result Diagram: 06/27/17210506/27/172105 Results 24 hrs Laboratory Tests Test 06/27/17 19:20 06/27/17 21:06 Urine Color COLORLESS Urine Clarity CLEAR Urine pH 7.0 Urine Specific [place] 1.002 L Urine Ketones NEGATIVE Urine Nitrite NEGATIVE Urine Bilirubin NEGATIVE Urine Urobilinogen NEGATIVE Urine Leukocyte Esterase NEGATIVE Urine Hemoglobin NEGATIVE Urine Glucose NEGATIVE Urine Total Protein NEGATIVE White Blood Count 10.7 Red Blood Count 4.25 Hemoglobin 12.0 Hematocrit 37.4 Mean Corpuscular Volume 88.0 Mean Corpuscular Hemoglobin 28.2 L Mean Corpuscular Hemoglobin Concent 32.1 Red Cell Distribution Width 14.4 Platelet Count 331 Mean Platelet Volume 10.2 Neutrophils % 64.6 Lymphocytes % 22.1 Monocytes % 5.9 Eosinophils % 6.5 Basophils % 0.5 Nucleated Red Blood Cells % 0.0 Neutrophils # 6.9 Lymphocytes # 2.4 Monocytes # 0.6 Eosinophils # 0.7 H Basophils # 0.1 Nucleated Red Blood Cells # 0.0 Prothrombin Time 11.6 L Prothrombin Time Ratio 0.9 INR International Normalized Ratio 0.85 Activated Partial Thromboplast Time 24.7 L Sodium Level 141 Potassium Level 4.6 Chloride Level 107 Carbon Dioxide Level 22 Anion Gap 17 H Blood Urea Nitrogen 6 L Creatinine 0.51 Glucose Level 113 Uric Acid 5.3 Calcium Level 9.4 Total Bilirubin 0.1 L Direct Bilirubin 0.00 Indirect Bilirubin 0.1 Aspartate Amino Transf (AST/SGOT) 16 Alanine Aminotransferase (ALT/SGPT) 23 Alkaline Phosphatase 201 H Total Protein 7.2 Albumin 3.7 Globulin 3.50 H Albumin/Globulin Ratio 1.05 Imaging Results PROCEDURE: US OB biophysical profile. CLINICAL INDICATION: decreased movements, pain TECHNIQUE: Multiple sonographic images of the pelvis were obtained. The images were reviewed on a PACS workstation. COMPARISON: 06/24/17 FINDINGS: There is a single viable intrauterine gestation. Cardiac activity is present with 137 beats per minute. There is a vertex presentation. The placenta is anterior. There is no evidence of placental abruption. There is a normal amount of amniotic fluid with an SARITA = 13.7 cm. Biophysical profile: movement 2/2 tone 2/2. breathing 2/2 SARITA 2/2 Total 8/8 RPTAT: AA . IMPRESSION: Normal biophysical profile. . Disposition: Discharge Assessment/Plan IUP at 38 weeks and 5 days Not in labor. testing reassuring. Cervical change was not noted during observation. Patient was discharged home with strict labor precautions to the kick count and follow-up with her primary OB within 24-48 hours. Patient verbalized understanding all above discussion. JOHNNIE SNOWDEN MD Jun 28, 2017 06:17
== END 2017-06-27 23:20 | disposition home or self-care (01) ==
LOC: OBT 19:20 → L-D 19:20 → OBT 23:20
PROVIDERS: ATTEND Obstetrics & Gynecology
DX: O62.9 Abnormality of forces of labor, unspecified (principal); Z3A.38 38 weeks gestation of pregnancy
CPT/HCPCS: 76818; 80053; 81003; 84560; 85025; 85610; 85730; Z7500; G0463

== ENCOUNTER 2017-07-01 11:31 | Inpatient (IN) | payer MEDICAID ==
[~2017-07-01] VITALS: Ht 160 cm; Wt 94.5 kg
[2017-07-01 11:39] VITALS: Ht 160 cm; Wt 94.5 kg
--- NOTE | 2017-07-01 12:21 | TRIAGE ---
OB Triage Datetime Report Generated by CPN: 07/01/2017 12:21 Datetime: 07/01/2017 11:41 Time of Arrival: 07/01/2017 11:25 EGA: 39.2 Arrived By: Ambulatory Arrived From: Home Chief Complaint: UC Movement: Present Contractions: Denies/Absent Time Contractions Began: 07/01/2017 04:00 Rupture of Membranes: Denies Vaginal Bleeding: Normal Show Vaginal Discharge: Denies Recent Sexual Intercouse: Denies Abdominal Trauma: Not Applicable Patient Complaints: Contractions Initial Plan: NST, VE Datetime: 07/01/2017 11:32 Stage of : OB Triage Vaginal Exam Dilatation (cms): 2.5 Effacement (%): 70 Station: -2 Exam By: Mavis NELSON Membrane Status: Intact Datetime: 06/27/2017 19:51 EGA: 38.5 Datetime: 06/27/2017 19:35 Fall Risk Assessment Fall Score: 0 Fall Risk Score Definition: No Risk: No action required Datetime: 06/24/2017 01:05 EGA: 38.1 Datetime: 06/19/2017 21:20 Fall Risk Assessment Fall Score: 0 Fall Risk Score Definition: No Risk: No action required Datetime: 06/19/2017 21:19 EGA: 37.4 Datetime: 06/11/2017 15:00 Fall Risk Assessment Fall Score: 0 Fall Risk Score Definition: No Risk: No action required Datetime: 06/11/2017 14:46 Fall Risk Assessment Fall Score: 0 Fall Risk Score Definition: No Risk: No action required Datetime: 06/11/2017 14:39 EGA: 36.3 Datetime: 05/15/2017 18:58 Fall Risk Assessment Fall Score: 0 Fall Risk Score Definition: No Risk: No action required Datetime: 05/15/2017 18:45 EGA: 32.4 Datetime: 03/04/2017 19:19 EGA: 22.2 Datetime: 03/04/2017 18:48 Fall Risk Assessment Fall Score: 0 Fall Risk Score Definition: No Risk: No action required
[2017-07-01] MEDS ORDERED: OXYTOCIN 30 UNITS/LR 500 ML IV PRN (12:30)
[2017-07-01] MEDS ORDERED: METHYLERGONOVINE 0.2 MG INJ IM PRN (12:30)
[2017-07-01] MEDS ORDERED: OXYTOCIN 30 UNITS/LR 500 ML IV SCH ×2 (12:30)
[2017-07-01] MEDS ORDERED: MISOPROSTOL 200 MCG TAB PR PRN (12:30)
[2017-07-01] MEDS ORDERED: LIDOCAINE 1% (MPF) 30 ML INJ INJ PRN (12:30)
[2017-07-01] MEDS ORDERED: IBUPROFEN 600 MG TAB PO PRN (12:30)
[2017-07-01] MEDS ORDERED: CARBOPROST 250 MCG INJ IM PRN (12:30)
[2017-07-01] MEDS: LACTATED RINGER'S 1,000 ML IV SCH ×4 (12:40→21:51)
[2017-07-01] MEDS ORDERED: LACTATED RINGER'S 1,000 ML IV PRN (13:30)
[2017-07-01] MEDS: OXYTOCIN 30 UNITS/LR 500 ML IV SCH (21:54)
[2017-07-01] MEDS: BUTORPHANOL 2 MG INJ IV PRN (23:11)
[2017-07-02] MEDS: LACTATED RINGER'S 1,000 ML IV SCH ×2 (06:33→11:30)
[2017-07-02] MEDS: OXYTOCIN 30 UNITS/LR 500 ML IV SCH (08:08)
--- NOTE | 2017-07-02 08:23 | RADRPT ---
PROCEDURE: US OB. CLINICAL INDICATION: Labor. TECHNIQUE: Multiple sonographic images of the pelvis were obtained. Transabdominal imaging only w as performed. The images were reviewed on a PACS workstation. COMPARISON: 06/27/2017. FINDINGS: There is a single living intrauterine gestation in cephalic position. There is an anterior placenta. There is no evidence of previa. Adequate amnionic fluid is demonstrated. Active cardiac motion is seen at 142 beats per minute. The biparietal diameter is 8.84 cm. The head circumference is 31.31 cm. The abdominal circumference is 35.55 cm. The femur length is 7.15 cm. Consistent with: 53-oubu-7-day gestation Estimated weight is 3326 plus or minus 499 g IMPRESSION: 1. Single living intrauterine gestation in cephalic position with a mean gestational age by ultraso und of 36 weeks 5 days plus or minus 18-day with estimated date of delivery of 07/25/2017. 2. Estimated weight is 3326 plus or minus 499 g. RPTAT: [facility] Physician Sonia Date Time Electronically viewed and signed by Physician Sonia on 07/02/2017 08:22 /
[2017-07-02] MEDS: BUTORPHANOL 2 MG INJ IV PRN (10:06)
--- NOTE | 2017-07-02 13:56 | LDN ---
Date/Time of Note Date/Time of Note DATE: 07/02/17 TIME: 13:56 Delivery Summary nsd Placenta Delivered: Spontaneously Meconium: none Anesthesia type: None Estimated blood loss: 300 Sponge & Needle done & correct: Yes All needle counts correct: Yes Problems: MARYA ROMERO MD Jul 02, 2017 13:56
--- NOTE | 2017-07-02 13:56 | HP ---
Date/Time of Note Date/Time of Note DATE: 07/02/17 TIME: 13:54 OB - History Hx of Present Free Text/Dictation in labor : 2 Para: 1 Care: Good Care Ultrasounds: Normal mid trimester US Obstetrical Complications: None Medical Complications: None Past Family/Social History * Past Medical, Surgical, Family and Obstetric Histories reviewed from chart. OB Admission Exam Physical Exam HEENT: WNL Heart: Rhythm Normal Lungs: Clear, Equal Abdomen: WNL Extremities: Normal Reflexes: Normal Cervical Dilatation: 10cm Effacement: 100% Station: +2 Membranes: Ruptured Amniotic Fluid: Clear Accelerations: Accelerations Present Decelerations: Early Decelerations Last 72 hours Lab Results CBC & BMP 07/01/17 12:30 OB Assessment/Plan Reason for admission: active labor Plan: Expectant Management MARYA ROMERO MD Jul 02, 2017 13:56
[2017-07-02] MEDS ORDERED: HYDROCODONE/APAP (5/325) TAB PO PRN ×2 (19:30)
[2017-07-02] MEDS ORDERED: METHYLERGONOVINE 0.2 MG INJ IM PRN (19:30)
[2017-07-02] MEDS ORDERED: OXYTOCIN 30 UNITS/LR 500 ML IV SCH (19:30)
[2017-07-02] MEDS ORDERED: WITCH HAZEL/GLYCERIN PAD PR PRN (19:30)
[2017-07-02] MEDS ORDERED: BENZOCAINE 20% 56 ML SPRAY TOP PRN (19:30)
[2017-07-02 20:00] VITALS: BP 133/89; PULSE 98
[2017-07-03 00:10] VITALS: BP 118/78; PULSE 86; RESP 18
[2017-07-03] MEDS: IBUPROFEN 600 MG TAB PO SCH ×5 (00:40→23:20)
[2017-07-03] MEDS ORDERED: LACTATED RINGER'S 1,000 ML IV* SCH (01:47)
[2017-07-03] MEDS ORDERED: MAGNESIUM HYDROXIDE 30ML CUP PO PRN (02:00)
[2017-07-03] MEDS ORDERED: MISOPROSTOL 200 MCG TAB PR PRN (02:00)
[2017-07-03] MEDS ORDERED: SENNA/DOCUSATE NA (8.6MG/50MG) TAB PO PRN (02:00)
[2017-07-03] MEDS ORDERED: HYDROCODONE/APAP (5/325) TAB PO PRN (02:00)
[2017-07-03] MEDS ORDERED: BENZOCAINE 20% 56 ML SPRAY TOP PRN (02:00)
[2017-07-03] MEDS ORDERED: LANOLIN 7 GM TUBE TOP PRN (02:00)
[2017-07-03] MEDS ORDERED: CARBOPROST 250 MCG INJ IM PRN (02:00)
[2017-07-03] MEDS ORDERED: WITCH HAZEL/GLYCERIN PAD PR PRN (02:00)
[2017-07-03] MEDS ORDERED: ACETAMINOPHEN 325 MG TAB PO PRN (02:00)
[2017-07-03] MEDS ORDERED: ZOLPIDEM 5 MG TAB PO PRN (02:00)
[2017-07-03] MEDS ORDERED: DIPHENHYDRAMINE 25 MG CAP PO PRN (02:00)
[2017-07-03] MEDS ORDERED: OXYTOCIN 30 UNITS/LR 500 ML IV PRN (02:00)
[2017-07-03] MEDS ORDERED: METHYLERGONOVINE 0.2 MG INJ IM PRN (02:00)
[2017-07-03 04:00] VITALS: BP 112/63; PULSE 76; RESP 18
[2017-07-03] MEDS: OXYTOCIN 30 UNITS/LR 500 ML IV SCH ×2 (05:47→19:00)
[2017-07-03 08:30] VITALS: BP 111/62; RESP 18
[2017-07-03] MEDS: SENNA TAB PO SCH (09:30)
[2017-07-03 16:00] VITALS: BP 137/80; PULSE 94; RESP 18
[2017-07-03 19:20] VITALS: BP 109/67; PULSE 86; RESP 17
[2017-07-04 03:50] VITALS: BP 112/63; PULSE 75; RESP 18
[2017-07-04] MEDS: IBUPROFEN 600 MG TAB PO SCH ×2 (05:43→11:52)
[2017-07-04] MEDS: IBUPROFEN 800 MG TAB PO SCH ×3 (05:56→12:00)
[2017-07-04 07:54] VITALS: BP 109/68; PULSE 77; RESP 16
[2017-07-04] MEDS ORDERED: MEASLES,MUMPS,RUBELLA VACCINE INJ SC* ONE (09:00)
[2017-07-04] MEDS ORDERED: VARICELLA VACCINE LIVE/PF 1,350 UNIT/0.5 ML ML SC* ONE (09:00)
[2017-07-04] MEDS ORDERED: DIPHTH/TET/ACEL PERTUSS (ADULT) 0.5 ML VIAL IM* ONE (09:00)
[2017-07-04] MEDS: SENNA TAB PO SCH (09:24)
--- NOTE | 2017-07-04 16:48 | PN ---
Date/Time of Note Date/Time of Note DATE: 07/04/17 TIME: 16:42 OB Subjective Subjective Subjective Denies any complaint. Vaginal bleeding moderate. Denies any dizziness, lightheadedness, Breast feeding. OB Objective Objective Objective GA: A&O, NAD Abdomen: soft, fundus firm, non tender.no fundal tenderness Extremities: No calf tenderness, no cord palpable. Breast: No evidence of mastitis , no fissure. Hematology - 72 Hrs Test 07/03/17 10:19 White Blood Count 11.110^3/ul (4.8-10.8) H Red Blood Count 4.0310^6/ul (4.20-5.40) L Hemoglobin 11.3g/dl (12.0-16.0) L Hematocrit 35.0% (37.0-47.0) L Mean Corpuscular Volume 86.8fl (82.0-101.0) Mean Corpuscular Hemoglobin 28.0pg (29.0-33.0) L Mean Corpuscular Hemoglobin Concent 32.3g/dl (32.0-37.0) Red Cell Distribution Width 14.6% (11.5-14.5) H Platelet Count 32753^3/UL (140-415) Mean Platelet Volume 10.4fl (7.4-10.4) Neutrophils % 64.3% (39.0-77.0) Lymphocytes % 22.9% (15.0-51.0) Monocytes % 5.0% (0.0-11.0) Eosinophils % 6.8% (0.0-7.0) Basophils % 0.5% (0.0-2.0) Nucleated Red Blood Cells % 0.0/100WBC (0.0-0.0) Neutrophils # 7.110^3/ul (1.6-7.5) Lymphocytes # 2.510^3/ul (0.8-2.9) Monocytes # 0.610^3/ul (0.3-0.9) Eosinophils # 0.810^3/ul (0.0-0.5) H Basophils # 0.110^3/ul (0.0-0.1) Nucleated Red Blood Cells # 0.010^3/ul (0.0-0.0) OB Assessment/Plan Other Assessment: PPD #2 Doing well DC home follow up at 6 weeks for post check or sooner JOHNNIE GREY MD Jul 04, 2017 16:48
--- NOTE | 2017-07-04 16:49 | DS ---
Date/Time of Note Date/Time of Note DATE: 07/04/17 TIME: 16:48 Obstetrical Discharge Record Final Diagnosis Final Diagnosis: Term delivered Vaginal Delivery Obstetrical Delivery: Spontaneous Complications Augmentation: No Induction: No Rupture of Membranes: No Condition on Discharge Physical Assessment Voiding: Yes Bowel Movement: Yes Breast: Soft, non-tender Fundus: Firm Calf Tenderness: No Patient Condition: Good JOHNNIE SNOWDEN MD Jul 04, 2017 16:49
== END 2017-07-04 16:10 | disposition home or self-care (01) | DRG 775 ==
LOC: OBT 11:31 → L-D 11:32 → OBT 12:15 → L-D 15:26 → PP1 07-02 15:39
PROVIDERS: ADMIT Obstetrics & Gynecology; ATTEND Obstetrics & Gynecology
PROC: 10E0XZZ Delivery of Products of Conception, External Approach (ICD-10-PCS; principal; 2017-07-02)
DX: O80 Encounter for full-term uncomplicated delivery (principal); Z37.0 Single live birth; Z3A.39 39 weeks gestation of pregnancy
CPT/HCPCS: 76815; 85025; 85610; 85730; 86592; 86900; 86901; 87340; 90715; 90716; G0463; J0595; J2590; J7120